=== PATIENT | female | born 1965 | race Caucasian/White ===

== ENCOUNTER 2017-08-23 09:54 | Emergency (ER) | payer BC ==
[2017-08-23] MEDS ORDERED: GI Cocktail 45 ML BOTTLE PO ONE (10:22)
--- NOTE | 2017-08-23 10:51 | EDM.PDOC ---
ED HPI GENERAL MEDICAL PROBLEM - General Chief Complaint: Chest Pain Stated Complaint: CHEST PAIN Time Seen by Provider: 08/23/17 10:36 Source of Information: Reports: Patient History Limitations: Reports: No Limitations - History of Present Illness INITIAL COMMENTS - FREE TEXT/NARRATIVE: Patient presents with a retro-sternal burning sensation. This has been going on for about 2 1/2 days fairly constantly. Wednesday night, when it started, was its worst at about 6/10; after a couple hours she took a Zantac which brought it down to about 3-4. It also seemed to improve with drinking lots of water. Since then it has been quite constant without change from eating or activity and is currently about 3/10. She's never had this before and denies any history of reflux/heartburn, [place], stents, hypertension or other heart problems. One of her parents had heart problems she says. Mid-Sternal Pain Score (Numeric/FACES): 3 - Related Data Allergies Allergy/AdvReac Type Severity Reaction Status Date / Time No Known Drug Allergies Allergy Cannot Verified 08/23/17 10:19 Remember Home Meds: Home Meds Vit C/E/Zn/Coppr/Lutein/Zeaxan [Preservision Areds 2 Softgel] 1 tab PO DAILY [History] ED ROS GENERAL - Review of Systems Review Of Systems: See Below Constitutional: Denies: Fever, Chills, Malaise, Weakness, Diaphoresis HEENT: Denies: Throat Pain, Vision Change Respiratory: Denies: Shortness of Breath, Cough Cardiovascular: Reports: Chest Pain, Dyspnea on Exertion (when she climbs up to 40 stairs at work she notices feeling winded and tight across the chest). Denies: Blood Pressure Problem, Lightheadedness, Syncope GI/Abdominal: Denies: Abdominal Pain, Diarrhea, Nausea, Vomiting Musculoskeletal: Reports: No Symptoms. Denies: Neck Pain, Shoulder Pain, Arm Pain Skin: Denies: Cyanosis, Jaundice, Mottled, Pallor, Diaphoresis Neurological: Denies: Confusion, Dizziness, Headache, Seizure, Syncope, Trouble Speaking, Difficulty Walking Psychiatric: Denies: Agitation, Anxiety, Confusion ED EXAM, GENERAL - Physical Exam Exam: See Below Exam Limited By: No Limitations General Appearance: Alert, WD/WN, No Apparent Distress Eye Exam: Bilateral Eye: EOMI, Normal Inspection, PERRL Ears: Normal External Exam, Hearing Grossly Normal Nose: Normal Inspection, No Blood Throat/Mouth: Normal Inspection, Normal Lips, Normal Voice, No Airway Compromise Head: Atraumatic, Normocephalic Neck: Normal Inspection, Supple, Non-Tender, Full Range of Motion Respiratory/Chest: No Respiratory Distress, Lungs Clear, Normal Breath Sounds, No Accessory Muscle Use Cardiovascular: Normal Peripheral Pulses, Regular Rate, Rhythm, No Edema, No Gallop, No JVD, No Murmur, No Rub Peripheral Pulses: 2+: Carotid (L), Carotid (R), Radial (L), Radial (R), Posterior Tibial (L), Posterior Tibial (R) GI/Abdominal: Soft, Non-Tender, No Organomegaly, No Distention Back Exam: Normal Inspection, Full Range of Motion. No: CVA Tenderness (L), CVA Tenderness (R) Extremities: Normal Inspection, Normal Range of Motion, Non-Tender, No Pedal Edema Neurological: Alert, Oriented, Normal Cognition, No Motor/Sensory Deficits Psychiatric: Normal Affect, Normal Mood Skin Exam: Warm, Dry, Intact, Normal Color, No Rash Course - Vital Signs Last Recorded V/S: Last Vital Signs Temp 99.3 F 08/23/17 10:23 Pulse 88 08/23/17 11:00 Resp 16 08/23/17 11:00 BP 108/74 08/23/17 11:00 Pulse Ox 95 08/23/17 11:00 - Orders/Labs/Meds Orders: Active Orders 24 hr Category Date Time Status EKG Documentation Completion [RC] ASDIRECTED Care 08/23/17 10:21 Active Labs: Laboratory Tests 08/23/17 08/23/17 Range/Units 10:30 10:30 WBC 3.9 L (5.0-10.0) 10^3/uL RBC 4.81 (3.80-5.50) 10^6/uL Hgb 14.0 (12.0-16.0) g/dL Hct 46.2 (37.0-47.0) % MCV 96.1 H (82.0-92.0) fL MCH 29.0 (27.0-31.0) pg MCHC 30.2 L (32.0-36.0) g/dL RDW 13.5 (11.5-14.5) % Plt Count 183 (150-300) 10^3/uL MPV 9.4 (7.4-10.4) fL Neut % (Auto) 60.5 (50.0-70.0) % Lymph % (Auto) 26.1 (20.0-40.0) % [place] % (Auto) 9.7 H (2.0-8.0) % Eos % (Auto) 3.2 H (1.0-3.0) % Baso % (Auto) 0.5 (0.0-1.0) % Neut # (Auto) 2.4 L (2.5-7.0) 10^3/uL Lymph # (Auto) 1.0 (1.0-4.0) 10^3/uL [place] # (Auto) 0.4 (0.1-0.8) 10^3/uL Eos # (Auto) 0.1 (0.1-0.3) 10^3/uL Baso # (Auto) 0.0 (0.0-0.1) 10^3/uL Sodium 142 (136-145) mmol/L Potassium 4.4 (3.3-5.3) mmol/L Chloride 103 (98-115) mmol/L Carbon Dioxide 29.3 (21.0-32.0) mmol/L BUN 12 (6-25) mg/dL Creatinine 0.74 (0.51-1.17) mg/dL Est Cr Clr Drug Dosing 93.99 mL/min Estimated GFR (MDRD) > 60 mL/min Glucose 99 (70-110) mg/dL Calcium 9.1 (8.7-10.3) mg/dL Troponin I 0.04 (0.00-0.070) ng/mL Meds: Medications Discontinued Medications Generic Name Dose Route Start Last Admin Trade Name Freq PRN Reason Stop Dose Admin Al Hydroxide/Mg Hydroxide 45 ml 08/23/17 10:22 08/23/17 10:39 Gi Cocktail PO 08/23/17 10:23 45 ml ONETIME ONE Administration - Re-Assessments/Exams Free Text/Narrative Re-Assessment/Exam: 08/23/17 11:38 GI cocktail seemed to improve slightly, from 3 to 2. EKG and troponin are normal. With the onset of symptoms 60 hours ago and the constant pain level, I am confident we have ruled out a cardiac etiology. Palpation of the upper sternum aggravates/exacerbates the pain. I feel this is most likely a costochondritis. We discussed findings, expectations and treatment plan. Patient discharged in stable condition. Departure - Departure Time of Disposition: 11:33 Disposition: Home, Self-Care 01 Condition: Good Clinical Impression: Anterior chest wall pain, Costochondritis, acute Referrals: Diana Bernstein MD [Primary Care Provider] - Forms: ED Department Discharge Additional Instructions: 1. Drink 8 cups of water daily. 2. Take Ibuprofen 400-600 mg three times a day as needed for pain control. 3. Recheck ESE if worsening significantly, either with your PCP or in ER. - My Orders Last 24 Hours: My Active Orders 08/23/17 10:21 EKG Documentation Completion [RC] ASDIRECTED - Assessment/Plan Last 24 Hours: My Active Orders 08/23/17 10:21 EKG Documentation Completion [RC] ASDIRECTED
[2017-08-23 11:11] LABS: CHLORIDE,CL 103 mmol/L (98-115); SODIUM,NA 142 mmol/L (136-145)
== END 2017-08-23 11:50 | disposition home or self-care (01) ==
LOC: KA.ED 09:54
DX: M94.0 Chondrocostal junction syndrome [Tietze] (principal)
CPT/HCPCS: 36415; 80048; 84484; 85025; 93005; 99284; A9270

== ENCOUNTER 2019-10-11 11:56 | Emergency (ER) | payer BC ==
[2019-10-11] MEDS ORDERED: Sodium Chloride 0.9% 1,000 ML IV ONE (12:16)
[2019-10-11] MEDS ORDERED: Sodium Chloride 0.9% 10 ML Syringe FLUSH PRN ×2 (12:16)
--- NOTE | 2019-10-11 12:21 | EDM.PDOC ---
ED HPI GENERAL MEDICAL PROBLEM - General Chief Complaint: General Stated Complaint: WEAKNESS/SHAKY Time Seen by Provider: 10/11/19 12:16 Source of Information: Reports: Patient History Limitations: Reports: No Limitations - History of Present Illness INITIAL COMMENTS - FREE TEXT/NARRATIVE: Patient is a 54-year-old female who presents to the emergency department via private vehicle for complaint of dizziness. Patient states at approximately 11 a.m. 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 Described as lightheadedness and not the room spinning. She told her coworker how she was feeling and they decided to present to emergency department. Patient states that she takes diet pills and although takes them intermittently she did take one this morning. Her breakfast consisted of a Pop Tart. She denies any other medication. Patient states symptoms are almost resolved, also denies at this time, chest pain, shortness of breath, nausea, vomiting, diarrhea, abdominal pain, headache, blurry vision, numbness or tingling, out of country travel, upper respiratory symptoms, or heart palpitations. Patient does complain of urinary urgency without dysuria Onset: Today Onset Time: 11:00 Duration: Improving Quality: Reports: Other (Dizzy) Improves with: Reports: Other (Spontaneously) Worsens with: Reports: None Context: Reports: Other (While standing and with minimal activity) Associated Symptoms: Reports: No Other Symptoms. Denies: Chest Pain, Cough, Diaphoresis, Fever/Chills, Headaches, Nausea/Vomiting, Seizure, Shortness of Breath, Syncope - Related Data Allergies Allergy/AdvReac Type Severity Reaction Status Date / Time No Known Drug Allergies Allergy Cannot Verified 10/11/19 12:01 Remember Home Meds: Home Meds Vit C/E/Zn/Coppr/Lutein/Zeaxan [Preservision Areds 2 Softgel] 1 tab PO DAILY [History] Cephalexin [Keflex] 500 mg PO TID #21 capsule 10/11/19 [Rx] Ibuprofen 800 mg PO DAILY PRN 10/11/19 [History] Non-Formulary Medication [NF Drug] 1 tab PO DAILY 10/11/19 [History] Past Medical History HEENT History: Reports: Macular Degeneration STRA[employer]NIFE [employer] MACHINE History: Reports: Social & Family History - Family History Cardiac: Reports: Heart Failure - Caffeine Use Caffeine Use: Reports: Coffee Other Caffeine Use: 3-4 cups/daily ED ROS GENERAL - Review of Systems Review Of Systems: Comprehensive ROS is negative, except as noted in HPI. Constitutional: Reports: No Symptoms HEENT: Reports: No Symptoms Respiratory: Reports: No Symptoms Cardiovascular: Reports: No Symptoms Endocrine: Reports: No Symptoms GI/Abdominal: Reports: No Symptoms : Reports: No Symptoms Musculoskeletal: Reports: No Symptoms Skin: Reports: No Symptoms Neurological: Reports: Dizziness. Denies: Headache, Numbness, Paresthesia, Seizure, Syncope, Tingling, Trouble Speaking, Weakness, Change in Speech Psychiatric: Reports: No Symptoms Hematologic/Lymphatic: Reports: No Symptoms Immunologic: Reports: No Symptoms ED EXAM, GENERAL - Physical Exam Exam: See Below Exam Limited By: No Limitations General Appearance: Alert, WD/WN, No Apparent Distress Eye Exam: Bilateral Eye: Normal Inspection Ears: Normal External Exam, Normal Canal, Normal TMs Nose: Normal Inspection, Normal Mucosa, No Blood Throat/Mouth: Normal Inspection, Normal Oropharynx, No Airway Compromise Head: Atraumatic, Normocephalic Neck: Normal Inspection, Supple, Non-Tender, Full Range of Motion Respiratory/Chest: No Respiratory Distress, Lungs Clear, Normal Breath Sounds, No Accessory Muscle Use, Chest Non-Tender Cardiovascular: Normal Peripheral Pulses, Regular Rate, Rhythm, No Murmur GI/Abdominal: Normal Bowel Sounds, Soft, Non-Tender, No Organomegaly, No Distention, No Abnormal Bruit, No Mass Back Exam: Normal Inspection. No: CVA Tenderness (L), CVA Tenderness (R) Extremities: Normal Inspection, No Pedal Edema Neurological: Alert, Oriented, CN II-XII Intact, Normal Cognition, No Motor/ Sensory Deficits, Other (No nystagmus) Psychiatric: Normal Affect, Normal Mood Skin Exam: Warm, Dry, Intact, Normal Color, No Rash Lymphatic: No Adenopathy EKG INTERPRETATION EKG Date: 10/11/19 Time: 12:30 Rhythm: NSR Rate (Beats/Min): 78 [place]: Normal P-Wave: Present QRS: Normal ST-T: Normal QT: Normal Comparison: NA - No Prior EKG Course - Vital Signs Last Recorded V/S: Last Vital Signs Temp 97.4 F 10/11/19 12:00 Pulse 101 H 10/11/19 12:00 Resp 180 H 10/11/19 12:00 BP 126/71 10/11/19 12:00 Pulse Ox 96 10/11/19 12:00 - Orders/Labs/Meds Orders: Active Orders 24 hr Category Date Time Status EKG Documentation Completion [RC] ASDIRECTED Care 10/11/19 12:15 Active Peripheral IV Care [RC] . DIRECTED Care 10/11/19 12:16 Active Peripheral IV Care [RC] . DIRECTED Care 10/11/19 12:16 Ordered A1C [GLYCOSYLATED HEMOGLOBIN,HGBA1C] [CHEM] Stat Lab 10/11/19 12:54 Ordered CULTURE URINE [RM] Stat Lab 10/11/19 12:47 Ordered Sodium Chloride 0.9% @ 999 MLS/HR (1000ml) Med 10/11/19 12:16 Ordered Sodium Chloride 0.9% [Normal Saline] 1,000 ml IV .BOLUS Sodium Chloride 0.9% [Saline Flush] Med 10/11/19 12:16 Active 10 ml FLUSH Q8HR PRN Sodium Chloride 0.9% [Saline Flush] Med 10/11/19 12:16 Ordered 10 ml FLUSH Q8HR PRN Peripheral IV Insertion Adult [OM.PC] Routine Oth 10/11/19 12:16 Ordered Peripheral IV Insertion Adult [OM.PC] Routine Oth 10/11/19 12:16 Ordered EKG 12 Lead [EK] Routine Ther 10/11/19 12:14 Ordered Medication Orders Sodium Chloride (Normal Saline) 1,000 mls @ 999 mls/hr IV .BOLUS ONE Stop: 10/11/19 13:16 Sodium Chloride (Saline Flush) 10 ml FLUSH Q8HR PRN PRN Reason: keep vein open Sodium Chloride (Saline Flush) 10 ml FLUSH Q8HR PRN PRN Reason: keep vein open Labs: Laboratory Tests 10/11/19 10/11/19 10/11/19 Range/Units 12:12 12:12 12:14 WBC 5.05 (5.00-10.00) 10^3/uL RBC 4.50 (3.80-5.50) 10^6/uL Hgb 14.2 (12.0-16.0) g/dL Hct 43.0 (37.0-47.0) % MCV 95.6 H (82.0-92.0) fL MCH 31.6 H (27.0-31.0) pg MCHC 33.0 (32.0-36.0) g/dL RDW 12.6 (11.5-14.5) % Plt Count 178 (150-400) 10^3/uL MPV 10.9 H (7.4-10.4) fL Immature Gran % (Auto) 0.0 (0.0-5.0) % Neut % (Auto) 68.7 (50.0-70.0) % Lymph % (Auto) 22.6 (20.0-40.0) % [place] % (Auto) 6.3 (2.0-8.0) % Eos % (Auto) 1.8 (1.0-3.0) % Baso % (Auto) 0.6 (0.0-1.0) % Immature Gran # (Auto) 0.00 (0.00-0.50) 10^3/uL Neut # (Auto) 3.47 (2.50-7.00) 10^3/uL Lymph # (Auto) 1.14 (1.00-4.00) 10^3/uL [place] # (Auto) 0.32 (0.10-0.80) 10^3/uL Eos # (Auto) 0.09 L (0.10-0.30) 10^3/uL Baso # (Auto) 0.03 (0.00-0.10) 10^3/uL Sodium 140 (136-145) mmol/L Potassium 3.7 (3.3-5.3) mmol/L Chloride 102 (98-115) mmol/L Carbon Dioxide 26.5 (21.0-32.0) mmol/L Anion Gap 15.2 H (5-15) mmol/L BUN 14 (6-25) mg/dL Creatinine 0.81 (0.51-1.17) mg/dL Est Cr Clr Drug Dosing 86.86 mL/min Estimated GFR (MDRD) > 60 mL/min Glucose 116 H (75 - 99) mg/dL Calcium 8.9 (8.7-10.3) mg/dL Total Bilirubin 0.4 (0.2-1.0) mg/dL AST 20 (15-37) U/L ALT 22 (12-78) U/L Alkaline Phosphatase 66 (46-116) IU/L Total Protein 7.5 (6.4-8.2) g/dL Albumin 3.94 (3.00-4.80) g/dL Specimen Type Urincc Urine Color Yellow (YELLOW) Urine Appearance Slightly cloudy H (CLEAR) Urine pH 6.0 (5.0-9.0) Ur Specific [place] <= 1.005 (1.005-1.030) Urine Protein Negative (NEGATIVE) mg/dL Urine Glucose (UA) Negative (NEGATIVE) mg/dL Urine Ketones Negative (NEGATIVE) mg/dL Urine Occult Blood Trace-intact H (NEGATIVE) Urine Nitrite Negative (NEGATIVE) Urine Bilirubin Negative (NEGATIVE) Urine Urobilinogen 0.2 (0.2-1.0) E.U./dL Ur Leukocyte Esterase Moderate H (NEGATIVE) Urine RBC 0-5 (0-5) /HPF Urine WBC 20-30 H (0-5) /HPF Ur Epithelial Cells Moderate H /LPF Urine Bacteria Moderate H (NONE TO FEW) /HPF Urine Yeast Few H (NEGATIVE) /HPF Meds: Medications Generic Name Dose Route Start Last Admin Trade Name Freq PRN Reason Stop Dose Admin Sodium Chloride 1,000 mls @ 999 mls/hr 10/11/19 12:16 Normal Saline IV 10/11/19 13:16 .BOLUS ONE Sodium Chloride 10 ml 10/11/19 12:16 Saline Flush FLUSH Q8HR PRN keep vein open Sodium Chloride 10 ml 10/11/19 12:16 Saline Flush FLUSH Q8HR PRN keep vein open Discontinued Medications Generic Name Dose Route Start Last Admin Trade Name Freq PRN Reason Stop Dose Admin Ceftriaxone Sodium 1 gm 10/11/19 12:45 Rocephin IVPUSH 10/11/19 12:46 ONETIME ONE - Re-Assessments/Exams Free Text/Narrative Re-Assessment/Exam: 10/11/19 13:02 Patient afebrile, vital signs stable, nontoxic appearing, symptoms resolved. Administered 1 g Rocephin IV in ER and will be given prescription for Keflex. Patient will follow-up with Dr. Retana in 2 days. Departure - Departure Time of Disposition: 13:04 Disposition: Home, Self-Care 01 Condition: Good Clinical Impression: UTI, Urinary tract infectious disease, Lightheadedness - Discharge Information Instructions: Antibiotic Medicine, Adult, [id number], Urinalysis Test, Dizziness, [id number], Urinary Tract Infection, Adult, [id number], Urine Culture and Sensitivity Testing Referrals: Diana Bernstein MD [Primary Care Provider] - Forms: ED Department Discharge Additional Instructions: Follow-up with Dr. Retana on Wednesday. Return to emergency department sooner symptoms continue or worsen. Sepsis Event Note - Evaluation Sepsis Screening Result: No Definite Risk - Focused Exam Vital Signs: Vital Signs Temp Pulse Resp BP Pulse Ox 10/11/19 12:00 97.4 F 101 H 180 H 126/71 96 Date Exam was Performed: 10/11/19 Time Exam was Performed: 13:00 - My Orders Last 24 Hours: My Active Orders 10/11/19 12:14 EKG 12 Lead [EK] Routine 10/11/19 12:15 EKG Documentation Completion [RC] ASDIRECTED 10/11/19 12:16 Peripheral IV Care [RC] . DIRECTED Peripheral IV Care [RC] . DIRECTED Sodium Chloride 0.9% @ 999 MLS/HR (1000ml) Sodium Chloride 0.9% [Normal Saline] 1,000 ml IV .BOLUS Sodium Chloride 0.9% [Saline Flush] 10 ml FLUSH Q8HR PRN Sodium Chloride 0.9% [Saline Flush] 10 ml FLUSH Q8HR PRN Peripheral IV Insertion Adult [OM.PC] Routine Peripheral IV Insertion Adult [OM.PC] Routine 10/11/19 12:47 CULTURE URINE [RM] Stat 10/11/19 12:54 A1C [GLYCOSYLATED HEMOGLOBIN,HGBA1C] [CHEM] Stat - Assessment/Plan Last 24 Hours: My Active Orders 10/11/19 12:14 EKG 12 Lead [EK] Routine 10/11/19 12:15 EKG Documentation Completion [RC] ASDIRECTED 10/11/19 12:16 Peripheral IV Care [RC] . DIRECTED Peripheral IV Care [RC] . DIRECTED Sodium Chloride 0.9% @ 999 MLS/HR (1000ml) Sodium Chloride 0.9% [Normal Saline] 1,000 ml IV .BOLUS Sodium Chloride 0.9% [Saline Flush] 10 ml FLUSH Q8HR PRN Sodium Chloride 0.9% [Saline Flush] 10 ml FLUSH Q8HR PRN Peripheral IV Insertion Adult [OM.PC] Routine Peripheral IV Insertion Adult [OM.PC] Routine 10/11/19 12:47 CULTURE URINE [RM] Stat 10/11/19 12:54 A1C [GLYCOSYLATED HEMOGLOBIN,HGBA1C] [CHEM] Stat Assessment:: Urinary tract infection Plan: Follow-up with PCP in 2 days
[2019-10-11] MEDS ORDERED: cefTRIAXone 1 GM Vial IVPUSH ONE (12:45)
[2019-10-11 12:49] LABS: ANION GAP 15.2 mmol/L (5-15); CHLORIDE,CL 102 mmol/L (98-115); SODIUM,NA 140 mmol/L (136-145)
[2019-10-11 13:14] LABS: HEMOGLOBIN A1C 5.1 % (4.3-5.7)
== END 2019-10-11 14:05 | disposition home or self-care (01) ==
LOC: KA.ED 11:56
DX: R42 Dizziness and giddiness (principal); N39.0 Urinary tract infection, site not specified
CPT/HCPCS: 80053; 81001; 83036; 85025; 87086; 93005; 96361; 96374; 99285-25; J0696; J7030

== ENCOUNTER 2020-01-02 10:41 | Day surgery (SDC) | payer BC ==
[2020-01-02 08:10] LABS: CORONAVIRUS COVID-19 RAPID PCR NEGATIVE (NEGATIVE)
[~2020-01-02 10:41] MED LIST: Midazolam 1 MG/ML 2 ML SDV ONE; Propofol 200 MG/20 ML SDV ONE
[2020-01-02] MEDS ORDERED: Propofol 200 MG/20 ML SDV IV ONE (10:42)
[2020-01-02] MEDS ORDERED: Midazolam 1 MG/ML 2 ML SDV IV ONE (10:42)
[2020-01-02] MEDS ORDERED: Sodium Chloride 0.9% 10 ML Syringe FLUSH PRN (11:00)
[2020-01-02] MEDS: Lactated Ringers 1,000 ML IV SCH (11:15)
[2020-01-02] MEDS ORDERED: Propofol 200 MG/20 ML SDV ONE (11:17)
--- NOTE | 2020-01-02 11:37 | PCM.PN ---
- General Info Date of Service: 01/02/20 - Review of Systems Systems Review Comment:: 54-year-old female referred for colonoscopy. This is her initial colonoscopy. She has not had any recent rectal bleeding but does note a recent change in bowel pattern with increased constipation. She also states that her grandmother had colon cancer. I have discussed the proposed colonoscopy with the patient. Risks such as but not limited to bleeding and GI injury reviewed. She agrees to proceed. Her recent history and physical is reviewed and no significant changes are noted. - Patient Data Weight - Most Recent: 85.729 kg Lab Results Last 24 Hours: Laboratory Results - last 24 hr 01/02/20 Range/Units 07:40 SARS-CoV-2 RNA (RT-PCR) Negative (NEGATIVE) Med Orders - Current: Current Medications Lactated Ringer's (Ringers, Lactated) 1,000 mls @ 50 mls/hr IV ASDIRECTED THOMAS Sodium Chloride (Saline Flush) 10 ml FLUSH Q8HR PRN PRN Reason: keep vein open Discontinued Medications Midazolam HCl (Versed 1 Mg/Ml) Confirm Administered Dose 2 mg .ROUTE .STK-MED ONE Stop: 01/02/20 10:33 Propofol (Diprivan 20 Ml) Confirm Administered Dose 200 mg .ROUTE .STK-MED ONE Stop: 01/02/20 10:33 - Problem List Review Problem List Initiated/Reviewed/Updated: Yes - My Orders Last 24 Hours: My Active Orders 01/02/20 11:00 Peripheral IV Care [RC] . DIRECTED Lactated Ringers [Ringers, Lactated] 1,000 ml IV ASDIRECTED Sodium Chloride 0.9% [Saline Flush] 10 ml FLUSH Q8HR PRN Peripheral IV Insertion Adult [OM.PC] Routine 01/02/20 11:23 HCG QUALITATIVE,SERUM [CHEM] Routine 01/02/20 12:00 Verify Patient Consent Obtain [RC] ASDIRECTED 01/02/20 Breakfast Nothing Per Oral Diet [DIET] - Assessment Assessment:: Colon cancer screening Change in bowel pattern - Plan Plan:: Colonoscopy
[2020-01-02 11:41] VITALS: BP 110/75; PULSE 71
--- NOTE | 2020-01-02 12:42 | PCM.OPNOTE ---
- General Post-Op/Procedure Note Date of Surgery/Procedure: 01/02/20 Operative Procedure(s): Colonoscopy with Polypectomy Findings: Small rectal polyp Colon and terminal ileum otherwise normal Pre Op Diagnosis: Colon Cancer Screening Post-Op Diagnosis: Colon Polyp Anesthesia Technique: MAC Primary Surgeon: Edwardo Perdomo Pathology: Rectal Polyp EBL in mLs: 0 Complications: None Condition: Good
--- NOTE | 2020-01-02 15:13 | OR ---
DATE OF SURGERY: 01/02/2020 SURGEON: Edwardo Perdomo MD PREOPERATIVE DIAGNOSIS: Colon cancer screening. POSTOPERATIVE DIAGNOSIS: Rectal polyp. OPERATION PERFORMED: Colonoscopy with polypectomy. INDICATIONS FOR SURGERY: This 54-year-old female is referred for her initial screening colonoscopy. She has noticed some recent change in bowel pattern with some increased constipation. FINDINGS: A single polyp was noted on today's exam. It is a 5 mm polyp in the rectum located 1 cm from the anal verge. The remainder of the colon and rectum appear normal. The terminal ileum also appears normal. DESCRIPTION OF PROCEDURE: The patient was taken to the operating room. She was given intravenous sedation and with her in the left lateral decubitus position, digital rectal exam was performed showing no rectal masses. The Olympus colonoscope was inserted into the rectum. Retroflexed examination of the rectal canal was performed. In the rectum, the above-described polyp was identified. It is removed with a cautery snare and retrieved. The scope was then carefully advanced under direct visualization through the entire length of the colon until the cecum is reached. The patient's colon was somewhat tortuous and this did require persistent careful manipulation and hand pressure, but eventually the cecum is able to be identified and cannulated. The ileocecal valve was cannulated and the terminal ileum examined and appeared normal. The light was noted to transilluminate the abdominal wall in the right lower quadrant and the appendiceal orifice also viewed. The scope was then slowly withdrawn sequentially re-examining the colonic segments until the entire colon and rectum have been fully examined. The scope was removed and the patient was taken from the operating room in satisfactory condition. ESTIMATED BLOOD LOSS: Zero. COMPLICATIONS: None. PROGNOSIS: Good. /[id number]/[id number]
== END 2020-01-02 13:50 | disposition home or self-care (01) ==
LOC: KA.SDS 10:41
PROVIDERS: ATTEND Surgery
DX: K62.1 Rectal polyp (principal); K59.00 Constipation, unspecified; I45.9 Conduction disorder, unspecified; B19.20 Unspecified viral hepatitis C without hepatic coma; Z11.59 Encounter for screening for other viral diseases; Z80.0 Family history of malignant neoplasm of digestive organs
CPT/HCPCS: 36415; 84703; J2250; J2704; J7120; U0002

== ENCOUNTER 2025-01-09 08:49 | Day surgery (SDC) | payer BC ==
[~2025-01-09 08:49] MED LIST changes: -Midazolam 1 MG/ML 2 ML SDV ONE; -Propofol 200 MG/20 ML SDV ONE; +Sodium Chloride 0.9% 10 ML Syringe FLUSH PRN
[2025-01-09] MEDS: Lactated Ringers 1,000 ML IV SCH (09:17)
[2025-01-09] MEDS ORDERED: Propofol 200 MG/20 ML SDV ONE (09:58)
[2025-01-09] MEDS ORDERED: Midazolam 1 MG/ML 2 ML SDV ONE (09:58)
== END 2025-01-09 11:45 | disposition home or self-care (01) ==
LOC: KA.SDS 08:49
PROVIDERS: ATTEND Surgery
DX: Z12.11 Encounter for screening for malignant neoplasm of colon (principal); K62.1 Rectal polyp; Z86.0100 Personal history of colon polyps, unspecified
CPT/HCPCS: J2250; J2704; J7120